=== PATIENT | female | born 1950 | race Caucasian/White ===

== ENCOUNTER 2016-07-25 17:48 | Inpatient (IN) | payer MEDICARE, BC ==
[2016-07-25] MEDS ORDERED: ACETAMINOPHEN TAB 500 MG TAB PO STA (18:18)
[2016-07-25] MEDS ORDERED: IPRATROPIUM-ALBUTEROL 3 ML NEB INHALATION STA (18:19)
--- NOTE | 2016-07-25 18:21 | ED ---
General Adult HPI - General Source: patient, family, RN notes reviewed Mode of arrival: wheelchair Limitations: no limitations <Bridger Rodríguez - Last Filed: 07/25/16 18:37> <Ronnie Ribeiro - Last Filed: 07/25/16 21:22> - General Chief complaint: Shortness of Breath Stated complaint: Diff breathing. Sent by [employer] Time Seen by Provider: 07/25/16 18:11 - History of Present Illness Initial comments: Patient is a pleasant 66-year-old female presenting to the emergency department with difficulty in breathing. Symptoms have been given over the past month or 2. Symptoms have been worse the past couple of days. Patient did go to urgent care and had chest x-ray done with concerns for pneumonia. Patient does not have x-ray with her. Patient states they did give her breathing treatment. He should has had subjective fevers at home and did take Motrin earlier. Patient has occasional productive green sputum. No history of COPD. (Bridger Rodríguez) - Related Data Home Medications Medication Instructions Recorded Confirmed Albuterol Nebulized [Ventolin 2.5 mg INHALATION RT-QID PRN 07/25/16 07/25/16 Nebulized] Diclofenac Sodium [Voltaren] 75 mg PO BID 07/25/16 07/25/16 HYDROcodone/APAP 5-325MG [[place] 1 tab PO TID PRN 07/25/16 07/25/16 5-325] Ibuprofen [Motrin] 400 mg PO Q6HR PRN 07/25/16 07/25/16 Ipratropium Nebulized [Atrovent 0.5 mg INHALATION RT-QID PRN 07/25/16 07/25/16 Nebulized] Oxybutynin Chloride [Ditropan XL] 10 mg PO DAILY 07/25/16 07/25/16 tiZANidine [Zanaflex] 4 mg PO HS 07/25/16 07/25/16 Allergies Allergy/AdvReac Type Severity Reaction Status Date / Time pregabalin [From Lyrica] AdvReac Extreme Verified 07/25/16 18:24 Sedation/Falls Review of Systems ROS Other: All systems not noted in ROS Statement are negative. Constitutional: Reports: fever Eyes: Denies: eye pain ENT: Denies: ear pain Respiratory: Reports: cough, dyspnea Cardiovascular: Denies: chest pain Endocrine: Reports: fatigue Gastrointestinal: Denies: abdominal pain Genitourinary: Denies: urgency Musculoskeletal: Denies: back pain Skin: Denies: rash Neurological: Denies: headache <Bridger Rodríguez - Last Filed: 07/25/16 18:37> ROS Other: All systems not noted in ROS Statement are negative. <Ronnie Ribeiro - Last Filed: 07/25/16 21:22> ROS Statement: Those systems with pertinent positive or pertinent negative responses have been documented in the HPI. Past Medical History Past Medical History: No Reported History, Osteoarthritis (OA) Additional Past Medical History / Comment(s): obesity History of Any Multi-Drug Resistant Organisms: None Reported Past Surgical History: No Surgical Hx Reported Past Psychological History: No Psychological Hx Reported Smoking Status: Never smoker Past Alcohol Use History: None Reported Past Drug Use History: None Reported <Bridger Rodríguez - Last Filed: 07/25/16 18:37> General Exam Limitations: no limitations General appearance: alert, obese Head exam: Present: atraumatic Eye exam: Present: normal appearance, PERRL ENT exam: Present: normal oropharynx Neck exam: Present: normal inspection Respiratory exam: Present: wheezes Cardiovascular Exam: Present: tachycardia GI/Abdominal exam: Present: soft. Absent: tenderness Extremities exam: Present: normal inspection. Absent: pedal edema, calf tenderness Neurological exam: Present: alert Psychiatric exam: Present: normal affect, normal mood Skin exam: Present: normal color <Bridger Rodríguez - Last Filed: 07/25/16 18:37> EKG Findings - EKG Comments: EKG Findings:: Sinus tachycardia 111. PVC present. GA 122. QRS 68. QT 36. QTc 416. Normal axis. Low QRS voltage. Inferior Q waves. No acute ST change. <Bridger Rodríguez - Last Filed: 07/25/16 18:37> Medical Decision Making <Bridger Rodríguez - Last Filed: 07/25/16 18:37> - Lab Data Result diagrams: 07/25/16 18:34 07/25/16 18:34 <Ronnie Ribeiro - Last Filed: 07/25/16 21:22> - Medical Decision Making Chest x-ray shows pneumonia I gave the patient Levaquin start with Zosyn on the floor. I spoke with Dr. Bob's nurse practitioner and she agreed to admit the patient admitted the patient and wrote admitting orders and continue the antibiotics on the floor. ( Ronnie Ribeiro) - Lab Data Lab Results 07/25/16 07/25/16 07/25/16 Range/Units 18:34 18:34 18:34 WBC 18.7 H (3.8-10.6) k/uL RBC 4.00 (3.80-5.40) m/uL Hgb 10.7 L (11.4-16.0) gm/dL Hct 35.4 (34.0-46.0) % MCV 88.5 (80.0-100.0) fL MCH 26.8 (25.0-35.0) pg MCHC 30.2 L (31.0-37.0) g/dL RDW 17.0 H (11.5-15.5) % Plt Count 409 (150-450) k/uL Neutrophils % 87 % Lymphocytes % 7 % Monocytes % 4 % Eosinophils % 1 % Basophils % 0 % Neutrophils # 16.2 H (1.3-7.7) k/uL Lymphocytes # 1.3 (1.0-4.8) k/uL Monocytes # 0.8 (0-1.0) k/uL Eosinophils # 0.2 (0-0.7) k/uL Basophils # 0.1 (0-0.2) k/uL Hypochromasia Slight Anisocytosis Slight PT (9.0-12.0) sec INR (<1.1) APTT (22.0-30.0) sec Sodium 139 (137-145) mmol/L Potassium 3.8 (3.5-5.1) mmol/L Chloride 104 (98-107) mmol/L Carbon Dioxide 27 (22-30) mmol/L Anion Gap 8 mmol/L BUN 10 (7-17) mg/dL Creatinine 0.69 (0.52-1.04) mg/dL Est GFR (MDRD) Af Amer >60 (>60 ml/min/1.73 sqM) Est GFR (MDRD) Non-Af >60 (>60 ml/min/1.73 sqM) Glucose 122 H (74-99) mg/dL Plasma Lactic Acid Maximo 1.3 (0.7-2.0) mmol/L Calcium 9.0 (8.4-10.2) mg/dL Total Bilirubin 0.6 (0.2-1.3) mg/dL AST 19 (14-36) U/L ALT 20 (9-52) U/L Alkaline Phosphatase 125 (38-126) U/L Total Protein 7.1 (6.3-8.2) g/dL Albumin 3.2 L (3.5-5.0) g/dL Urine Color Urine Appearance (Clear) Urine pH (5.0-8.0) Ur Specific [place] (1.001-1.035) Urine Protein (Negative) Urine Glucose (UA) (Negative) Urine Ketones (Negative) Urine Blood (Negative) Urine Nitrite (Negative) Urine Bilirubin (Negative) Urine Urobilinogen (<2.0) mg/dL Ur Leukocyte Esterase (Negative) Urine RBC (0-5) /hpf Urine WBC (0-5) /hpf Ur Squamous Epith Cells (0-4) /hpf Amorphous Sediment (None) /hpf Hyaline Casts (0-2) /lpf Urine Mucus (None) /hpf 07/25/16 07/25/16 Range/Units 18:34 20:25 WBC (3.8-10.6) k/uL RBC (3.80-5.40) m/uL Hgb (11.4-16.0) gm/dL Hct (34.0-46.0) % MCV (80.0-100.0) fL MCH (25.0-35.0) pg MCHC (31.0-37.0) g/dL RDW (11.5-15.5) % Plt Count (150-450) k/uL Neutrophils % % Lymphocytes % % Monocytes % % Eosinophils % % Basophils % % Neutrophils # (1.3-7.7) k/uL Lymphocytes # (1.0-4.8) k/uL Monocytes # (0-1.0) k/uL Eosinophils # (0-0.7) k/uL Basophils # (0-0.2) k/uL Hypochromasia Anisocytosis PT 10.8 (9.0-12.0) sec INR 1.1 (<1.1) APTT 25.5 (22.0-30.0) sec Sodium (137-145) mmol/L Potassium (3.5-5.1) mmol/L Chloride (98-107) mmol/L Carbon Dioxide (22-30) mmol/L Anion Gap mmol/L BUN (7-17) mg/dL Creatinine (0.52-1.04) mg/dL Est GFR (MDRD) Af Amer (>60 ml/min/1.73 sqM) Est GFR (MDRD) Non-Af (>60 ml/min/1.73 sqM) Glucose (74-99) mg/dL Plasma Lactic Acid Maximo (0.7-2.0) mmol/L Calcium (8.4-10.2) mg/dL Total Bilirubin (0.2-1.3) mg/dL AST (14-36) U/L ALT (9-52) U/L Alkaline Phosphatase (38-126) U/L Total Protein (6.3-8.2) g/dL Albumin (3.5-5.0) g/dL Urine Color Yellow Urine Appearance Clear (Clear) Urine pH 6.0 (5.0-8.0) Ur Specific [place] 1.026 (1.001-1.035) Urine Protein 2+ H (Negative) Urine Glucose (UA) Negative (Negative) Urine Ketones Negative (Negative) Urine Blood Trace H (Negative) Urine Nitrite Negative (Negative) Urine Bilirubin Negative (Negative) Urine Urobilinogen 2.0 (<2.0) mg/dL Ur Leukocyte Esterase Negative (Negative) Urine RBC 6 H (0-5) /hpf Urine WBC 4 (0-5) /hpf Ur Squamous Epith Cells 10 H (0-4) /hpf Amorphous Sediment Occasional H (None) /hpf Hyaline Casts 10 H (0-2) /lpf Urine Mucus Moderate H (None) /hpf Disposition <Bridger Rodríguez - Last Filed: 07/25/16 18:37> Time of Disposition: 21:22 <Ronnie Ribeiro - Last Filed: 07/25/16 21:22> Clinical Impression: Pneumonia Disposition: ADMITTED IP TO THIS [facility] Referrals: Payton Regalado MD [Primary Care Provider] - 1-2 days
[2016-07-25] MEDS: SODIUM CHLORIDE 0.9% 500 ML IV SCH (18:45)
[2016-07-25 18:51] LABS: Anisocytosis Slight; Basophils # (A) 0.1 k/uL (0-0.2); Basophils % (A) 0 %; CH 27.7; CHCM 31.4; Eosinophils # (A) 0.2 k/uL (0-0.7); Eosinophils % (A) 1 %; HCT 35.4 % (34.0-46.0); HDW 2.76; HGB 10.7 gm/dL (11.4-16.0); Hypochromasia Slight; Luc # (Auto) 0.22; Luc % (Auto) 1; Lymphocytes # (A) 1.3 k/uL (1.0-4.8); Lymphocytes % (A) 7 %; MCH 26.8 pg (25.0-35.0); MCHC 30.2 g/dL (31.0-37.0); MCV 88.5 fL (80.0-100.0); Mean Platelet Volume 6.7; Monocytes # (A) 0.8 k/uL (0-1.0); Monocytes % (A) 4 %; Neutrophils # (A) 16.2 k/uL (1.3-7.7); Neutrophils % (A) 87 %; WBC 18.7 k/uL (3.8-10.6); WBC (Perox) 18.29
[2016-07-25 18:53] LABS: INR 1.1 (<1.1); Partial Thromboplastin Time 25.5 sec (22.0-30.0); Prothrombin Time 10.8 sec (9.0-12.0)
[2016-07-25 18:56] LABS: ALT 20 U/L (9-52); AST 19 U/L (14-36); Alkaline Phosphatase 125 U/L (38-126); Anion Gap 8 mmol/L; Blood Urea Nitrogen 10 mg/dL (7-17); Carbon Dioxide 27 mmol/L (22-30); Chloride 104 mmol/L (98-107); Glucose 122 mg/dL (74-99); Non-African American GFR(MDRD) >60 (>60 ml/min/1.73 sqM); Potassium 3.8 mmol/L (3.5-5.1); Sodium 139 mmol/L (137-145); Total Bilirubin 0.6 mg/dL (0.2-1.3); Total Protein 7.1 g/dL (6.3-8.2)
--- NOTE | 2016-07-25 19:17 | XR ---
EXAMINATION TYPE: XR chest 2V DATE OF EXAM: 07/25/2016 COMPARISON: NONE HISTORY: Fever TECHNIQUE: Frontal and lateral views of the chest are obtained. FINDINGS: Exam is limited by the patient's size. There is consolidation at the right posterior lung base. The left lung appears clear. There is no heart failure. There are no hilar masses. There are ch est leads. Heart size is normal. IMPRESSION: Right lower lobe pneumonia.
[2016-07-25 20:42] LABS: Amorphous Sediment,Urine Occasional /hpf; Appearance,Urine Clear (Clear); Bilirubin,Urine Negative (Negative); Glucose,Urine (UA) Negative (Negative); Ketones,Urine Negative (Negative); Leukocyte Esterase,Urine Negative (Negative); Mucus,Urine Moderate /hpf; Nitrite,Urine Negative (Negative); Particle Count 11919; Protein,Urine 2+ (Negative); RBC,Urine 6 /hpf (0-5); Specific Gravity,Urine 1.026 (1.001-1.035); Squamous Epithelial Cell,Urine 10 /hpf (0-4); UA Billing (MACRO vs. MICRO) MICRO; WBC,Urine 4 /hpf (0-5)
[2016-07-25] MEDS ORDERED: LEVOFLOXACIN 750MG-D5W PMX 750 MG in DEXTROSE/WATER 1 150ML.BAG IVPB STA (20:53)
[2016-07-25] MEDS ORDERED: PNEUMONIA PROTOCOL UTILIZED 1 EACH MISC PO PRN (21:22)
[2016-07-25] MEDS ORDERED: PIPERACILLIN-TAZOBACTAM 3.375 GM in DEXTROSE/WATER 1 50ML.BAG IVPB STA (21:24)
[2016-07-25] MEDS ORDERED: IPRATROPIUM 0.5 MG/2.5 ML NEBU INHALATION PRN (23:15)
[2016-07-25] MEDS ORDERED: IBUPROFEN 200 MG TAB PO PRN (23:15)
[2016-07-25] MEDS ORDERED: tiZANidine 4 MG TAB PO PRN (23:15)
[2016-07-25] MEDS ORDERED: ALBUTEROL NEBULIZED 2.5 MG/3 ML INHALATION PRN (23:15)
[2016-07-25] MEDS: IPRATROPIUM-ALBUTEROL 3 ML NEB INHALATION PRN (23:43)
[2016-07-25] MEDS: ETODOLAC 200 MG CAPSULE PO SCH (23:46)
[2016-07-25] MEDS: guaiFENesin SYRUP 100MG/5ML 200 MG/10 ML CUP PO PRN (23:47)
[2016-07-26] MEDS: guaiFENesin SYRUP 100MG/5ML 200 MG/10 ML CUP PO PRN ×2 (03:08→19:19)
--- NOTE | 2016-07-26 07:28 | XR ---
EXAMINATION TYPE: XR chest 2V DATE OF EXAM: 07/26/2016 COMPARISON: Chest x-ray from yesterday. HISTORY: Pneumonia and cough. TECHNIQUE: Frontal and lateral views of the chest are obtained. FINDINGS: Exam is suboptimal secondary to patient's large body habitus. Seen best on lateral view th ere is posterior basilar opacity redemonstrated. No new focal airspace opacity, pleural effusion, or pneumothorax is seen bilaterally. The cardiac silhouette size is stable and mildly enlarged. The o sseous structures are intact. IMPRESSION: Overall stable findings, Persistent posterior basilar infiltrate. No new infiltrate is s een.
[2016-07-26] MEDS: HYDROcodone/APAP 5-325MG 1 EACH TAB PO PRN ×2 (08:07→21:32)
[2016-07-26] MEDS: ETODOLAC 200 MG CAPSULE PO SCH ×2 (08:07→22:12)
[2016-07-26] MEDS: OXYBUTYNIN 10 MG TAB.ER.24 PO SCH (08:07)
[2016-07-26] MEDS: PIPERACILLIN-TAZOBACTAM 3.375 GM in DEXTROSE/WATER 1 50ML.BAG IVPB SCH ×3 (08:30→23:26)
[2016-07-26] MEDS: IPRATROPIUM-ALBUTEROL 3 ML NEB INHALATION PRN ×2 (12:41→19:21)
[2016-07-26] MEDS: LEVOFLOXACIN 750MG-D5W PMX 750 MG in DEXTROSE/WATER 1 150ML.BAG IVPB SCH (21:32)
[2016-07-27] MEDS: guaiFENesin SYRUP 100MG/5ML 200 MG/10 ML CUP PO PRN (00:51)
[2016-07-27] MEDS: IPRATROPIUM-ALBUTEROL 3 ML NEB INHALATION PRN (07:35)
[2016-07-27 08:07] LABS: Anisocytosis Slight; Basophils # (A) 0.1 k/uL (0-0.2); Basophils % (A) 0 %; CH 27.2; CHCM 30.4; Eosinophils # (A) 0.3 k/uL (0-0.7); Eosinophils % (A) 2 %; HCT 31.8 % (34.0-46.0); HDW 2.71; HGB 9.7 gm/dL (11.4-16.0); Hypochromasia Moderate; Luc # (Auto) 0.32; Luc % (Auto) 2; Lymphocytes # (A) 1.9 k/uL (1.0-4.8); Lymphocytes % (A) 14 %; MCH 27.4 pg (25.0-35.0); MCHC 30.4 g/dL (31.0-37.0); Mean Platelet Volume 6.4; Monocytes # (A) 0.6 k/uL (0-1.0); Monocytes % (A) 5 %; Neutrophils # (A) 10.5 k/uL (1.3-7.7); Neutrophils % (A) 77 %; RBC 3.53 m/uL (3.80-5.40); RDW 16.9 % (11.5-15.5); WBC 13.7 k/uL (3.8-10.6); WBC (Perox) 14.16
[2016-07-27] MEDS: PIPERACILLIN-TAZOBACTAM 3.375 GM in DEXTROSE/WATER 1 50ML.BAG IVPB SCH ×2 (08:16→15:37)
[2016-07-27] MEDS: ETODOLAC 200 MG CAPSULE PO SCH ×2 (08:17→20:01)
[2016-07-27] MEDS: OXYBUTYNIN 10 MG TAB.ER.24 PO SCH (08:17)
[2016-07-27 08:21] LABS: Anion Gap 8 mmol/L; Blood Urea Nitrogen 9 mg/dL (7-17); Calcium 8.7 mg/dL (8.4-10.2); Carbon Dioxide 25 mmol/L (22-30); Chloride 106 mmol/L (98-107); Glucose 99 mg/dL (74-99); Non-African American GFR(MDRD) >60 (>60 ml/min/1.73 sqM); Potassium 4.3 mmol/L (3.5-5.1); Sodium 139 mmol/L (137-145)
[2016-07-27] MEDS: HYDROcodone/APAP 5-325MG 1 EACH TAB PO PRN ×3 (09:27→21:05)
--- NOTE | 2016-07-27 12:02 | HP ---
DATE OF ADMISSION: 07/25/2016 CHIEF COMPLAINT: Difficulty in breathing. HISTORY OF PRESENT ILLNESS: Ms. Paige is a 66-year-old female with a past medical history of chronic low back pain, osteoarthritis, coming in with a chief complaint of difficulty in breathing. The patient states that she had been having difficulty in breathing for the past couple of months. For the past couple of weeks the symptoms have gotten worse. She came into the hospital for further evaluation. The patient complains of sputum which is yellow in color, with some occasional chills and subjective fevers at home. Patient did take Motrin but did not have much relief with it. She said that she has been taking care of her grandkids who have been sick also. The patient does not have any history of COPD. No history of smoking. She had been using her inhalers for the past couple of days. The symptoms have been getting worse for the past couple of days. REVIEW OF SYSTEMS: CONSTITUTIONAL: Subjective fevers. RESPIRATORY: As above. CARDIOVASCULAR: No chest pain. No palpitations. GI: No nausea, vomiting or diarrhea. : No dysuria or hematuria. HEMATOLOGICAL: No history of easy bruising or recurrent infections. MUSCULOSKELETAL: No history of rheumatoid arthritis or swelling of her joints. SKIN: No rashes. NEUROLOGICAL: No nausea, vomiting. No slurring of speech or witnessed episodes. All review of systems were done and negative except for the ones mentioned in the HPI. PAST MEDICAL HISTORY: Significant for osteoarthritis and morbid obesity. Patient's home medications: 1. Albuterol inhalations p.r.n. for shortness of breath. 2. Diclofenac 7.5 mg p.o. b.i.d. 3. [place] 5/325, one tablet 3 times daily p.r.n. for pain. 4. Oxybutynin 10 mg p.o. daily. 5. Zanaflex 4 mg p.o. at bedtime. ALLERGIES: PREGABALIN. PAST SURGICAL HISTORY: None. SOCIAL HISTORY: Never a smoker. No alcohol or drug abuse. FAMILY HISTORY: Denies having any family history of hypertension or diabetes. VITAL SIGNS: Currently, temperature 97.5, heart rate 99, respirations 16, blood pressure 126/78, saturation 99% on 3 L of nasal cannula. GENERAL EXAMINATION: The patient is obese, appears to be in no acute distress. HEAD: Atraumatic, normocephalic. EYES: Pupils, round, and reactive to light. No pallor. No icterus. NECK: No JVD. No thyromegaly. RESPIRATORY: Bilateral coarse breath sounds are positive. Positive for bilateral wheezes. CARDIOVASCULAR: S1, S2. No tachycardia. ABDOMEN: Soft, nontender. Bowel sounds are positive. Organomegaly difficult to appreciate due to huge body habitus. EXTREMITIES: No edema. No cyanosis, no clubbing. Peripheral pulses are felt. NEUROLOGIC: GENERAL I FARMWORKER awake, alert x3. No focal neurological deficits. PSYCHIATRIC: Appropriate mood and affect. SKIN: No rash. LABS: White count of 18.7, hemoglobin is 10.7, platelets of 409. Sodium 139, potassium 3.8, chloride 104, bicarb 27, BUN 10, creatinine 0.69. UA positive for occasional amorphic sediment, squamous epithelial cells, 2+ protein, trace blood. Negative for nitrites and leukocyte esterase. The patient had a chest x-ray done which was showing right lower lobe pneumonia. ASSESSMENT AND PLAN: 1. Sepsis secondary to right lower lobe pneumonia. 2. Right lower lobe pneumonia, community acquired. 3. Morbid obesity with body mass index of 48.9. 4. History of osteoarthritis. PLAN: The patient has been started on levofloxacin, which will be continued. We will continue with symptomatic management with ( ) for her cough and breathing treatments. Respiratory status is improving. Further recommendations to follow depending on the progress of the patient.
--- NOTE | 2016-07-27 19:04 | PN ---
DATE OF SERVICE: 07/27/2016. INTERVAL HISTORY: Ms. Paige is a 66-year-old male with a past medical history of chronic low back pain, osteoarthritis, admitted to the hospital with a chief complaint of difficulty in breathing. Patient also had a cough for the past couple of weeks. She is currently being treated for right lower lobe pneumonia. The patient has been on breathing treatments and antibiotics and showed some improvement in her breathing. REVIEW OF SYSTEMS: CONSTITUTIONAL: No fever, chills or rigors. RESPIRATORY: Patient's difficulty in breathing is getting better, but still has been short of breath when she tried to go to the bathroom this morning. CARDIOVASCULAR: No chest pain or palpitations. GASTROINTESTINAL: No abdominal pain, nausea, vomiting, or diarrhea. : No dysuria or hematuria. Patient's medications have been reviewed. She is on: 1. [place]. 2. Albuterol. 3. [place]. 4. Robitussin. 5. ( ). 6. Levofloxacin. 7. Zosyn. 8. Ditropan. 9. Zanaflex. Patient's vital signs are temperature 97.7, heart rate 97, respiratory rate 16, blood pressure 155/104, saturating at 99% on 3 liters of nasal cannula. HEAD: Atraumatic, normocephalic. GENERAL EXAMINATION: The patient is obese, appears to be no acute distress. HEAD: Atraumatic, normocephalic. Pupils equal, round and reactive to light. No pallor. No icterus. NECK: No JVD. No thyromegaly. RESPIRATORY: A few coarse breath sounds are heard bilaterally. ( ) movement compared to yesterday. CARDIOVASCULAR: S1, S2 heard. No tachycardia. ABDOMEN: Soft, nontender. Bowel sounds are positive. Organomegaly difficult to appreciate due to huge body habitus. EXTREMITIES: No edema. No cyanosis, no clubbing. Peripheral pulses are felt. Neurology. COMFORT STATION SUPERVISOR: Alert, awake, oriented x3. No focal neurological deficits. PSYCHIATRIC: Appropriate mood and affect. SKIN: No rash. MUSCULOSKELETAL: No joint swelling or deformities. The patient's labs: White count of 13.7, hemoglobin is 9.7, platelets 82, sodium 139, potassium 4.3, chloride 106, bicarb 25, BUN 9, creatinine 0.67. ASSESSMENT AND PLAN: 1. Sepsis secondary to right lower lobe pneumonia. 2. Right lower lobe pneumonia community acquired. 3. Morbid obesity with body mass index of 48.9. 4. History of osteoarthritis. PLAN: The plan is to continue the patient on levofloxacin and Zosyn. Continue breathing treatments. We will start the patient on 50 mg prednisone. She is showing very slow recovery in terms of her breathing. Further recommendations to follow depending on the progress of the patient.
[2016-07-27] MEDS: LEVOFLOXACIN 750MG-D5W PMX 750 MG in DEXTROSE/WATER 1 150ML.BAG IVPB SCH (20:01)
[2016-07-28] MEDS: PIPERACILLIN-TAZOBACTAM 3.375 GM in DEXTROSE/WATER 1 50ML.BAG IVPB SCH ×2 (00:05→07:47)
[2016-07-28] MEDS: OXYBUTYNIN 10 MG TAB.ER.24 PO SCH (07:47)
[2016-07-28] MEDS: ETODOLAC 200 MG CAPSULE PO SCH (07:47)
[2016-07-28 08:02] VITALS: BP 146/97; PULSE 92; TEMP 97.7
[2016-07-28 08:40] LABS: Anisocytosis Slight; Basophils # (A) 0.1 k/uL (0-0.2); Basophils % (A) 0 %; CH 27.2; CHCM 31.4; Eosinophils # (A) 0.4 k/uL (0-0.7); Eosinophils % (A) 3 %; HCT 31.5 % (34.0-46.0); HDW 2.92; HGB 9.9 gm/dL (11.4-16.0); Hypochromasia Slight; Luc # (Auto) 0.26; Luc % (Auto) 2; Lymphocytes # (A) 1.7 k/uL (1.0-4.8); Lymphocytes % (A) 12 %; MCH 27.5 pg (25.0-35.0); MCHC 31.6 g/dL (31.0-37.0); MCV 86.9 fL (80.0-100.0); Mean Platelet Volume 6.5; Monocytes # (A) 0.5 k/uL (0-1.0); Monocytes % (A) 4 %; Neutrophils # (A) 11.2 k/uL (1.3-7.7); Neutrophils % (A) 79 %; RBC 3.62 m/uL (3.80-5.40); RDW 16.9 % (11.5-15.5); WBC 14.2 k/uL (3.8-10.6); WBC (Perox) 14.05
[2016-07-28] MEDS: HYDROcodone/APAP 5-325MG 1 EACH TAB PO PRN (09:05)
[2016-07-28 12:40] VITALS: RESP 20
[2016-07-28] MEDS ORDERED: predniSONE 50 MG TAB PO SCH (21:00)
--- NOTE | 2016-07-29 09:50 | DS ---
DATE OF ADMISSION: 07/25/2016 DATE OF DISCHARGE: 07/28/2016 DATE OF SERVICE: 07/28/2016 HOSPITAL COURSE: Ms. Paige is a 66-year-old female with a past medical history of chronic low back pain, osteoarthritis, admitted to the hospital with a chief complaint of difficulty in breathing. Patient was having cough for the past couple of weeks. Patient had a chest x-ray in the ED showing right lower lobe pneumonia. The patient was put on breathing treatments, started on ceftriaxone, Zithromax and IV steroids. Patient showed significant improvement in her symptoms of breathing. Patient did require supplemental oxygen during her hospital stay. She will be getting a 6-minute walk test and if she qualifies for oxygen, will be discharging her on home oxygen. Patient's vitals and physical exam within normal limits at the time of discharge. PATIENT'S DISCHARGE DIAGNOSES: 1. Sepsis secondary to right lower lobe pneumonia. 2. Right lower lobe pneumonia, community acquired. 3. Morbid obesity with body mass index of 48.9. 4. History of osteoarthritis. PATIENT'S DISCHARGE MEDICATIONS: 1. Albuterol 2.5 mg p.r.n. for shortness of breath. 2. Diclofenac 75 mg p.o. b.i.d. 3. [place] 5/325 one tablet p.o. 3 times a day. 4. Motrin 400 mg p.o. q.6 hours p.r.n. for pain. 5. Atrovent 0.5 mg inhalation 4 times a day p.r.n. for shortness of breath. 6. Oxybutynin 10 mg p.o. daily. 7. Levofloxacin 500 mg p.o. daily for 4 days . 8. Prednisone 50 mg p.o. q.h.s. for 4 days. FOLLOWUP: The patient is advised to follow up with her PCP, Dr. Payton Regalado within 2 to 3 days. She is being discharged home in stable condition today.
== END 2016-07-28 14:06 | disposition home or self-care (01) | DRG 871 ==
LOC: EC 17:48 → 4MS4W 21:22
PROVIDERS: ADMIT Hospitalist; ATTEND Hospitalist
DX: A41.9 Sepsis, unspecified organism (principal); J18.9 Pneumonia, unspecified organism; Z68.42 Body mass index [BMI] 45.0-49.9, adult; E66.01 Morbid (severe) obesity due to excess calories; M54.5 Low back pain; G89.29 Other chronic pain; M19.90 Unspecified osteoarthritis, unspecified site; Z79.899 Other long term (current) drug therapy
CPT/HCPCS: 36415; 71020; 80048; 80053; 81001; 83605; 85025; 85610; 85730; 87040; 87070; 87077; 87086; 87186; 87205; 93005; 94640; 96361; 96365; 99285

== ENCOUNTER → 2016-10-14 | Outpatient (CLI) | payer MEDICARE, BC ==
--- NOTE | 2016-10-14 15:11 | XR ---
EXAMINATION TYPE: XR knee limited RT , 2 VIEWS DATE OF EXAM ORDERED: 10/14/2016 HISTORY: [id number] OA rt knee. COMPARISON: None. FINDINGS: There is severe medial joint space loss. There is peaking of intercondylar spines. There is remodeling change in the medial compartment as well as the patellofemoral joint. No definite joint e ffusion is seen.. IMPRESSION: FAIRLY SEVERE OSTEOARTHRITIS.
== END | disposition home or self-care (01) ==
LOC: RADXRYALE 14:58
PROVIDERS: ATTEND Internal Medicine
DX: M17.11 Unilateral primary osteoarthritis, right knee (principal)